=== PATIENT | female | born 1945 | race Caucasian/White ===

== ENCOUNTER → 2018-08-26 12:02 | Outpatient (CLI) | payer MEDICARE, SELFPAY | PROVIDERS: Visit Provider Specialist | DX: R30.0 Dysuria (principal) | CPT/HCPCS: 87077; 87086; 87186 ==

== ENCOUNTER → 2018-08-26 12:24 | Outpatient (CLI) | payer MEDICARE, SELFPAY ==
[2018-08-26 13:58] LABS: Add Manual Diff / Slide Review NO; Basophils Percent Auto 0.4 % (0-2); Eosinophils Percent Auto 3.3 % (2-4); Hematocrit 38.5 % (36-46); Hemoglobin 12.7 g/dL (12.0-16.0); Lymphocytes Percent Auto 16.3 % (25-40); Mean Corpuscular HGB Conc 32.9 % (30-36); Mean Corpuscular Hemoglobin 30.4 PG (26-34); Mean Corpuscular Volume 92.4 fL (80-100); Monocytes Percent Auto 9.4 % (3-14); Neutrophils Absolute Auto 7100 /uL (3000-5900); Neutrophils Percent Auto 70.6 % (50-75); Platelet Count 239 X10^3/uL (150-400); Red Blood Cell Count 4.17 X10^6/uL (4.0-5.2); Red Cell Distribution Width 14.3 % (11.6-14.8)
[2018-08-26 15:09] LABS: Alanine Aminotransferase 26 IU/L (9-52); Albumin 4.5 g/dL (3.5-5.0); Albumin Globulin Ratio 1.2 (1.0-2.8); Alkaline Phosphatase 79 U/L (38-126); Aspartate Aminotransferase 26 IU/L (14-36); BUN Creatinine Ratio 37.5 (6-22); Bilirubin Total 0.4 mg/dL (0.2-1.3); Blood Urea Nitrogen 30 mg/dL (7-17); Calcium 9.2 mg/dL (8.4-10.2); Carbon Dioxide 27 mmol/L (22-32); Chloride 103 mmol/L (98-107); Estimated Glomerular Filt Rate > 60.0 mL/min (>60); Globulin 3.7 g/dL (1.7-4.1); Glucose 81 mg/dL (80-110); HEMOLYSIS < 15 (0-50); Potassium 4.4 mmol/L (3.4-5.1); Sodium 144 mmol/L (137-145); Total Protein 8.2 g/dL (6.3-8.2)
== END ==
PROVIDERS: PCP Internal Medicine; Visit Provider Specialist
DX: Z01.818 Encounter for other preprocedural examination (principal); R30.0 Dysuria
CPT/HCPCS: 36415; 80053; 85025; 87077; 87086; 87186

== ENCOUNTER 2018-09-02 08:15 | Day surgery (SDC) | payer MEDICARE, SELFPAY ==
[2018-08-29 07:46] VITALS: BMI 28.3
[2018-09-02] VITALS (7 sets, daily range): BP systolic 145–176; BP diastolic 57–73; PULSE 62–74; RESP 13–18; TEMP 36.2–36.9; O2SAT 95–100; BMI 28.3
[2018-09-02] MEDS: LACTATED RINGERS 1,000 ML 100 ML IV (09:34)
--- NOTE | 2018-09-02 09:46 | SUR.OPER ---
Lithotomy on padded OR bed, head on pillow, arms secured on padded arm boards at <90 degrees abduction. Legs secured in padded yellow fins stirrups.
--- NOTE | 2018-09-02 10:01 | PM.PREOP ---
Pre-operative Note Interval Note Pre-op Check: Yes History & Physical Reviewed by Physician and Yes Exam Performed Changes: No
[2018-09-02] MEDS: CLINDAMYCIN 900 MG/50 ML PIGGYBACK 50 MG IV (10:08)
[2018-09-02] MEDS: BUPIVACAINE 0.5% W/ EPI (PF) VIAL 30 ML INJ (10:24)
--- NOTE | 2018-09-02 11:15 | PM.OP.1 ---
Operative Date/Time/Diagnoses Date of procedure: 09/02/18 Time of procedure: 11:15 Pre-op diagnosis: Symptomatic vaginal prolapse Post-op diagnosis: same Procedure & Clinicians Procedure: Colpocleisis Same procedure as scheduled: Yes Indications: Symptomatic vaginal wall prolapse Surgeon: Melita Burgess Click Yes if Unassisted: Yes Anesthesia Type: General Operative Notes Findings: Status post hysterectomy with cystocele and enterocele Closure Type: primary Specimen(s): none sent Estimated Blood Loss (mL): 20 Blood products transfused: none Procedure in detail: Patient was brought to the operating room where she was in a supine position in [facility] and underwent a light general anesthetic. She was prepped and draped in the usual sterile fashion. Her bladder was drained. Antibiotics were in prior to beginning of the case. Warming was in place. Pulsatile stockings were in place. Area on anterior and posterior wall of the prolapse were marked with a marking pen and injected with a dilute solution of half percent Marcaine with epinephrine. The skin was incised with a scalpel and undermined with and removed removed with Metzenbaum scissors. 2-0 Vicryl suture was used in an interrupted fashion to close anterior to posterior on the sides creating a tunnel to the vaginal cuff. The cystocele was reduced with a pursestring suture of 2 0 Vicryl suture. 0 Vicryl suture was used to plicate under the urethral bladder junction. A 0 Vicryl suture was used to plicate the tissue over the enterocele. The vaginal incision was closed from anterior to posterior. Counts of instruments and sponges were correct. Patient went to recovery room in good condition. Complications: none Condition: stable Disposition: same day surgery Plan for aftercare: Home when awake and stable and able to urinate
== END 2018-09-02 12:35 | disposition home or self-care (01) ==
PROVIDERS: PCP Internal Medicine; Visit Provider Specialist
PROC: (CPT 57120; principal; 2018-09-02 09:45)
DX: N99.3 Prolapse of vaginal vault after hysterectomy (principal); N81.11 Cystocele, midline; J45.909 Unspecified asthma, uncomplicated; I10 Essential (primary) hypertension; M06.9 Rheumatoid arthritis, unspecified
CPT/HCPCS: 57120; J1100; J2405; J2704; J3010

== ENCOUNTER → 2019-02-03 11:40 | Outpatient (CLI) | payer MEDICARE, SELFPAY ==
--- NOTE | 2019-02-03 | DI.MRI.S_ITS ---
PROCEDURE: MR KNEE RT WO CON INDICATIONS: Pain in right knee TECHNIQUE: Noncontrast sagittal PD fast spin echo and T2 fast spin echo with fat saturation, sagittal 3-D FLASH with fat saturation; coronal T1 spin echo and PD fast spin echo with fat saturation, and axial PD fast spin echo with fat saturation through the knee. COMPARISON: [facility], MR, MR KNEE RIGHT WITHOUT CONTRAST, 09/01/2018, 15:35. FINDINGS: Image quality: Diagnostic. Bones and joint: There is no acute fracture or dislocation. No suspicious osseous lesions are evident. There is a small knee joint effusion with an associated Armas's cyst. Irregularity of the hyaline articular cartilage is noted within the lateral and patellofemoral compartments with small to moderate-sized full-thickness cartilaginous defects present. Degenerative/reactive marrow changes are evident involving the lateral patellar facet and the lateral tibial plateau. There also are reactive marrow changes evident along the periphery of the lateral tibial plateau. Developing marginal osteophytes within these 2 compartments are present. Cruciate ligaments: The anterior and posterior cruciate ligaments are intact. Menisci: There is an oblique tear identified that extends into the inferior articular surface involving the body of the lateral meniscus. Degenerative signal of the lateral meniscus is present. There is degenerative signal of the medial meniscus, which is positioned along the periphery of the body of the meniscus without a discrete medial meniscal tear evident. Medial structures: The medial collateral ligament is intact. Edema about the medial collateral ligament is noted. There is slight thickening involving the proximal aspect of this ligament. There is thickening and mild increased signal identified involving the distal aspect of the semimembranosus tendon at its insertion with low-grade partial-thickness tearing. It may be fluid contained within its corresponding bursa. The imaged portions of the pes anserinus tendons are unremarkable. A small amount of fluid is contained within the pes anserinus bursa. Lateral structures: The popliteal tendon is intact. The lateral collateral ligament proper (fibular collateral ligament) and the proximal tibiofibular ligaments are intact. The distal aspect of the biceps femoris tendon and the iliotibial band are intact. Anterior structures: The quadriceps and patellar tendons are intact. There is no significant edema in the infrapatellar fat pad. Prepatellar edema is noted. IMPRESSION: 1. Moderate patellofemoral and lateral tibiofemoral compartment chondromalacia. 2. Small knee joint effusion with an associated probable leaking Armas's cyst. 3. Nondisplaced oblique tear involving the inferior articular surface of the lateral meniscal body. 4. Grade 2 signal of the medial meniscus without a discrete tear. 5. Medial collateral ligament sprain with possible superimposed scarring. 6. Low-grade partial-thickness tearing and tendinopathy of the semimembranosus tendon insertion with fluid contained within its corresponding bursa. There is also fluid within the pes anserinus bursa. 7. Prepatellar bursal thickening/edema. Dictated by: Prabhjot Padgett M.D. on 02/03/2019 at 11:47 Approved by: Prabhjot Padgett M.D. on 02/03/2019 at 12:06
== END ==
PROVIDERS: PCP Internal Medicine; Visit Provider Orthopaedic Surgery
DX: M25.561 Pain in right knee (principal); S83.281A Other tear of lateral meniscus, current injury, right knee, initial encounter; S83.411A Sprain of medial collateral ligament of right knee, initial encounter; M22.41 Chondromalacia patellae, right knee; M25.461 Effusion, right knee
CPT/HCPCS: 73721

== ENCOUNTER → 2019-02-10 15:42 | Outpatient (CLI) | payer MEDICARE, SELFPAY ==
[2019-02-10 16:48] LABS: RBC Urine None Seen (0-5/HPF)
[2019-02-10 17:21] LABS: Hematocrit 39.7 % (36-46); Hemoglobin 13.3 g/dL (12.0-16.0); Mean Corpuscular HGB Conc 33.4 % (30-36); Mean Corpuscular Hemoglobin 30.4 PG (26-34); Mean Corpuscular Volume 91.2 fL (80-100); Platelet Count 232 X10^3/uL (150-400); Red Blood Cell Count 4.36 X10^6/uL (4.0-5.2); Red Cell Distribution Width 14.5 % (11.6-14.8); White Blood Cell Count 9.6 X10^3/uL (4.5-11.0)
[2019-02-10 17:33] LABS: Alanine Aminotransferase 22 IU/L (9-52); Albumin 4.6 g/dL (3.5-5.0); Albumin Globulin Ratio 1.2 (1.0-2.8); Alkaline Phosphatase 78 U/L (38-126); Aspartate Aminotransferase 29 IU/L (14-36); BUN Creatinine Ratio 28.8 (6-22); Bilirubin Total 0.6 mg/dL (0.2-1.3); Blood Urea Nitrogen 23 mg/dL (7-17); Calcium 9.2 mg/dL (8.4-10.2); Carbon Dioxide 29 mmol/L (22-32); Chloride 102 mmol/L (98-107); Estimated Glomerular Filt Rate > 60.0 mL/min (>60); Globulin 3.9 g/dL (1.7-4.1); Glucose 88 mg/dL (80-110); HEMOLYSIS < 15 (0-50); Potassium 4.3 mmol/L (3.4-5.1); Sodium 141 mmol/L (137-145); Total Protein 8.5 g/dL (6.3-8.2)
[2019-02-10 17:39] LABS: Appearance Urine UA CLEAR; Bilirubin Urine UA NEGATIVE (NEGATIVE); Color Urine UA YELLOW; Glucose Urine UA NEGATIVE (Negative); Ketones Urine UA NEGATIVE (NEGATIVE); Leukocyte Esterase Urine UA TRACE (NEGATIVE); Nitrite Urine UA NEGATIVE (Negative); Occult Blood Urine UA NEGATIVE (Negative); Protein Urine UA NEGATIVE (Negative); Urobilinogen Urine UA 0.2 E.U./dL (0.2)
[2019-02-10 17:42] LABS: Hemoglobin A1C% w Est Avg Glu 5.1 % (4.0-6.0)
[2019-02-10 18:15] LABS: Amorphous Sediment Urine 1+; Bacteria Urine Occasional (0-1); Culture Indicated Urine Specimen Cultured; Squamous Epithelial Cell Urine 0-1 /HPF (0-5/HPF); WBC Urine 5-10/HPF (0-5/HPF)
== END ==
PROVIDERS: PCP Internal Medicine; Visit Provider Orthopaedic Surgery
DX: Z01.818 Encounter for other preprocedural examination (principal); N39.0 Urinary tract infection, site not specified; R73.9 Hyperglycemia, unspecified
CPT/HCPCS: 36415; 80053; 81001; 83036; 85027; 87077; 87086; 87186; 93005

== ENCOUNTER → 2019-02-10 16:32 | Outpatient (CLI) | payer MEDICARE, SELFPAY | PROVIDERS: PCP Internal Medicine; Visit Provider Orthopaedic Surgery | DX: N39.0 Urinary tract infection, site not specified (principal); R73.9 Hyperglycemia, unspecified; Z01.818 Encounter for other preprocedural examination | CPT/HCPCS: 93010 ==

== ENCOUNTER → 2019-02-16 09:02 | Outpatient (CLI) | payer MEDICARE, SELFPAY | PROVIDERS: PCP Internal Medicine; Visit Provider Specialist | DX: N39.0 Urinary tract infection, site not specified (principal); R33.9 Retention of urine, unspecified | CPT/HCPCS: 87086 ==

== ENCOUNTER 2019-03-15 06:01 | Day surgery (SDC) | payer MEDICARE, SELFPAY ==
[2019-03-01 13:39] VITALS: BMI 27.8
[2019-03-15] VITALS (12 sets, daily range): BP systolic 118–168; BP diastolic 48–74; PULSE 52–73; RESP 10–18; TEMP 35.8–36.2; O2SAT 93–100; BMI 27.8
--- NOTE | 2019-03-15 06:50 | DI.RAD.S_ITS ---
PROCEDURE: XR KNEE RT 1TO2V INDICATIONS: RIGHT TOTAL KNEE TECHNIQUE: 2 view(s) of the knee acquired. COMPARISON: None. FINDINGS: Bones: Patient is status post knee joint arthroplasty. Hardware components are in expected positions. Visualized bony structures are intact. Soft tissues: Overlying postoperative changes are noted. IMPRESSION: Expected postoperative appearance Dictated by: Andrea Butler M.D. on 03/15/2019 at 11:04 Approved by: Andrea Butler M.D. on 03/15/2019 at 11:04
[2019-03-15] MEDS: ACETAMINOPHEN 325 MG TABLET 975 MG PO ×3 (06:52→22:26)
[2019-03-15] MEDS: PREGABALIN 75 MG CAPSULE PO (06:52)
[2019-03-15] MEDS: LACTATED RINGERS 1,000 ML 42 ML IV (07:00)
[2019-03-15] MEDS: VANCOMYCIN 1,000 MG/200 ML PIGGYBACK 200 MG IV (07:01)
--- NOTE | 2019-03-15 07:42 | PM.PREOP ---
Pre-operative Note Interval Note History & Physical reviewed/Exam performed by Physician: Yes Changes to H&P: No
--- NOTE | 2019-03-15 07:49 | PM.OP.1 ---
Operative Date/Time/Diagnoses Date of procedure: 03/15/19 Time of procedure: 07:59 Pre-op diagnosis: Right knee osteoarthritis Post-op diagnosis: same Procedure & Clinicians Procedure: Right total knee arthroplasty Same procedure as scheduled: Yes Indications: The patient has had progressively worsening right knee pain with radiographic changes consistent with arthritis. Non-operative management has failed and the patient has requested total knee replacement. The risks, benefits and alternatives to surgery were discussed with the patient prior to proceeding. Risks discussed included, but were not limited to, failure to relieve pain, stiffness, infection, nerve damage, deep venous thrombosis, pulmonary embolism, stroke, coma, heart attack, permanent paralysis and , as well as the potential need for eventual revision of the prosthetic. Surgeon: Maris Manzanares Building Services Supervisor: David Vidal Click Yes if Unassisted: Yes Anesthesia Type: General and Spinal Operative Notes Findings: Severe right knee osteoarthritis Closure Type: primary Specimen(s): none sent Prosthetic devices, grafts, tissues, transplants, or devices: Manzanares and Nephew Jeanethney BCS 2 size 4 femur, size 3 tibia, +10 poly, 32 by 7-1/2 mm patella Applied: drain(s) Estimated Blood Loss (mL): 250 Blood products transfused: none Tourniquet time (min): 76 Procedure in detail: The patient was seen in the pre-operative area, where the patient identified the right knee as the operative site and this was marked with my initials. The patient received pre-operative antibiotics, and was taken to the operating room and placed on the operative table in the supine position. After satisfactory anesthesia, a time buyer out was performed. The right leg was encircled with a tourniquet about the proximal thigh, and the leg was prepared from the toes to the tourniquet with ChloroPrep in the usual fashion and draped through sterile drapes. The leg was elevated and exsanguinated with Eschmark bandage and the tourniquet inflated to [250] mmHg pressure. The knee was approached through an approximately 18 cm incision centered over the patella and carried into the knee through a medial parapatellar arthrotomy. A portion of the medial and lateral meniscus was resected. Soft tissue was carefully mobilized around the patella the patella was measured with a caliper. Bone was resected from the patella and the patellar height was reconstituted with up an appropriate sized patellar component. A cover was then placed on the patella. A small amount of additional medial and lateral meniscus was resected. The visionare guide fit well to the distal femur. It looked like an appropriate distal femoral cut and the cut was made without difficulty. The rotation was assessed and the appropriate size femoral guide was placed on the distal femur and finishing cuts were made. There was no evidence of notching. The anterior, posterior and chamfer cuts were then made. The posterior osteophytes and soft tissues were then removed. The posterior capsule was injected with part of a mixture of 60 ml 0.25% Marcaine mixed with 20 ml Exparel for post operative pain control. The remainder of this mixture was injected into the capsule and subcutaneous tissues during cement curing. The tibia was prepared and the visionaire guide fit well to the distal tibia. The rotation was assessed. The patient was placed in extension residual medial and lateral meniscus as well as any residual bone was carefully resected. [No] additional tibia was resected. Hemostasis was achieved especially posteriorly. Additional local was injected into the posterior capsule. The extension gap was assessed and additional releases for gap balancing were performed as necessary. The femoral component was trial was placed and the notch was finished. Trial tibial and femoral components were then placed and the knee placed through a range of motion. Range of motion was [0-130], with good stability throughout the range. The trials were then removed, and the tibia was finished. The bone was prepared with pulsatile lavage, and dried with a sponge. Cement was applied and the final prosthetics placed. Excess cement was removed during and after cement curing. A brief Betadine soak was performed. A 10 poly was selected for midflexion stability. After confirming there was no extruded cement posteriorly, the final tibial insert was placed. The knee was copiously irrigated and the tourniquet deflated. Hemostasis was obtained with the Bovie. A drain was placed and brought out superolaterally. The capsule was closed with interrupted Vicryl suture. The subcutaneous layer was closed with barbed sutures, and the skin with a running 3-0 V-Lock suture and Surgical glue. An Aquacel Ag dressing was applied and the patient was taken to recovery having tolerated the procedure well. Complications: none Condition: stable Disposition: Acute Care Plan for aftercare: The patient will be maintained on a standard total knee replacement protocol with weight bearing as tolerated. The patient will receive aspirin and sequential compression devices for DVT prophylaxis. The patient will be discharged home when safe for the home environment.
[2019-03-15] MEDS: CEFAZOLIN 2 GM/100 ML FROZ.PIGGY IV ×3 (08:00→23:39)
[2019-03-15] MEDS: TRANEXAMIC ACID 1,000 MG VIAL 1000 MG INJ ×2 (08:10→09:50)
--- NOTE | 2019-03-15 08:31 | SUR.OPER ---
Supine on padded OR bed. Pillow under head, arms secured on padded armboards <90 degree abduction. Safety belt across torso. Non-operative leg secured with tape over blanket over lower leg. Operative leg secured in DeMayo/Terence positioner. Foam padded brace at thigh of operative leg.
[2019-03-15] MEDS: BUPIVACAINE LIPOSOME 266 MG/20 ML VIAL INJ (08:35)
[2019-03-15] MEDS: BUPIVACAINE 0.25% W/ EPI 30 ML VIAL 60 ML INJ (08:35)
[2019-03-15] MEDS: POVIDONE-IODINE 15 ML, SODIUM CHLORIDE 0.9% 250 ML TOP (08:36)
[2019-03-15] MEDS: LACTATED RINGERS 1,000 ML 125 ML IV (11:00)
--- NOTE | 2019-03-15 12:05 | CM.DANOTE ---
DCP: Case received, EMR reviewed and met with patient. Introduced self and role. Was able to obtain history from patient, also at bedside. DCP template assessment completed with information currently available. Patient is a 74 year old female who admitted early this morning to the care of the surgical/orthopedic team. PCP: Dr. Augustin. Payer: confirmed: Medicare/[employer]. Patient came to hospital for surgical procedure. She had R. total knee arthroplasty. Patient has history of right knee osteoarthritis. Met with patient in her room, awake. , Rocael, at bedside. Patient stated, she has had history of knee problems, and has had cortisone in the past. She mentioned that she has been going to outpatient physical therapy in [facility], and expects to go back there. P: DCP to continue to follow. Will see how she does with physical therapy. Isabel Isaacs RN/Edi Developer
--- NOTE | 2019-03-15 14:11 | PC.NURSE ---
Addendum entered by Keke White R.N. 03/15/19 15:40: Pt had a 200cc emesis around 1500 after taking 975mg of tylenol. Pt was then given zofran iv and she is doing better. Denies nausea at this time. Original Note: Pt admitted to the floor at 1040. She has a aquacel dressing with acewrap to r.knee. She denies pain and just refused 1500 tylenol. States that she is tired more than anything. She has feeling down to her toes, cms wnl and ppx2. is at bedside and helpful with care, he is a retired MD. Just took a few sips of the ensure surgery drink. Resting comfortably on back at this time.
--- NOTE | 2019-03-15 14:49 | PT.IIE ---
Current Diagnoses Unilateral primary osteoarthritis, right knee (03/15/19) Surgery Performed Operation Date: 03/15/19 07:45 Actual Procedures p Total Knee Arthroplasty(Right) - Maris Manzanares MD Surgical History (Last Updated 03/01/19 @ 14:22 by Cintia Reyes, RN) History of bladder suspension procedure (Acute) Hx of parathyroidectomy (Acute) Hx of tonsillectomy (Acute) Anesthesia (Resolved) History of carpal tunnel surgery (Resolved) History of hysterectomy (Resolved) Parathyroid adenoma (Resolved) Status post surgery (Resolved ~09/02/18) Medical History (Last Updated 03/01/19 @ 14:22 by Cintia Reyes RN) HLD (hyperlipidemia) (Acute) History of cystocele (Acute ~08/2018) Macular degeneration of both eyes (Acute) Pneumonia (Acute) Reflux esophagitis (Acute) Asthma (Chronic) Cataracts, bilateral (Chronic) Fibroids (Chronic) Foot pain (Chronic) Hemorrhoid (Chronic) Hypertension (Chronic) Osteopenia (Chronic) Osteoporosis (Chronic) Rheumatoid arthritis (Chronic) Rosacea (Chronic) Seasonal allergies (Chronic) Vision disorder (Chronic) Abnormal Pap smear of cervix (Resolved) Carpal tunnel syndrome (Resolved) Chicken pox (Resolved) Mumps (Resolved) Rubella (Resolved) Physical Therapy Inpatient Evaluation/Re-Eval M1 PT/OT-IP Prior Functional Status Start: 03/15/19 16:11 Freq: NEEDED Status: Active Protocol: Document 03/15/19 14:49 AB (Rec: 03/15/19 16:25 AB [id number]) Medical Review Prior Functional Status Medical History Reviewed Yes Communication able to make needs known Mobility and Gait pt stated that she is independent with all mobilities and ambulation without AD Social History Household Members spouse Living Arrangements House Number of Floors (Floors) Two Floors Number of Stairs To Enter/Railing? has 2 steps to enter with R rail ascending Home Environment Standard Height Toilet Walk in Shower Built-In Shower Seat Home Equipment Front Wheel Walker Straight Cane Grab Bars In Shower Employment Status Retired Additional Social History Comment has an adjustable bed pt also has walking sticks M2 PT-IP Current Condition Start: 03/15/19 16:11 Freq: NEEDED Status: Active Protocol: Document 03/15/19 14:49 AB (Rec: 03/15/19 16:25 AB [id number]) Physical Therapy Current Condition Current Condition Evaluation Date 03/15/19 Treatment Diagnosis s/p R TKA; difficulty in walking Onset Date 03/15/19 Weight Bearing Status Weight Bearing Status Weight Bear as Tolerated M3 PT-IP Subjective Start: 03/15/19 16:11 Freq: NEEDED Status: Active Protocol: Document 03/15/19 14:49 AB (Rec: 03/15/19 16:25 AB [id number]) Subjective Physical Therapy Visit Type Type Initial Evaluation Visit Start Time 14:49 Visit Stop Time 16:05 Total Visit Minutes 47 Notes pt seen for split visits Number of YAM CURER Visits 0 Physical Therapy Visit Comments Patient Comments pt agreeable to do PT Therapy Pain Assessment Pain When Pain Assessed At Rest Pain Present Pain Present Pain Reported Location Right Knee Intensity 6 Scale Used Numeric (1 - 10) Pain Management Techniques Apply Cold Re-positioning Timing of Activity with Medications M4 PT-IP Mobility and Gait Start: 03/15/19 16:11 Freq: NEEDED Status: Active Protocol: Document 03/15/19 14:49 AB (Rec: 03/15/19 16:25 AB [id number]) PT-Bed Mobility Assessment Supine to Sit Supine to Sit Standby Assistance Head of Bed Elevated Sit to Supine Sit to Supine Standby Assistance Scooting Scooting to Edge of Bed Standby Assistance PT-Transfer Assessment Sit to and From Stand Sit to and from Stand Minimal Assistance 1 Person Assistance Use of Upper Extremities Equipment Transfer Assistive Device Gait Belt Front Wheeled Walker Orthotic/Prosthetic Devices or Brace: No Transfers Transfer Destination Bedside Commode Transfer Technique Stand Step Pivot Transfer Ability Level of Assist Minimal Assistance 1 Person Assistance Use of Upper Extremities Comments Mobility Comments check on pt and inquired about PLOF and home set up. attempted to move but pt c/o nausea still supine in bed. ( +) emesis. informed nurse. nurse has to give pt nausea medication first and PT to check back again. checked on pt after ~ 30 min and pt willing to do PT. BP supine: 149/60 pt sat on EOB SBA. c/o lightheadedness. BP: 156/72. attempted to walk to the toilet but after completing sit to stand min A, pt stated that she is already going. NAC in room and positioned bedside commode next to pt and pt completed stand step pivot min A using FWW. pt completed sit to stand from bedside commode min A. pt was able to maintain standing using FWW for support CGA while NAC assisted with hygiene care and brief management. pt then took ~ 3 steps towards HOB using FWW min A and has to sit back down due to c/o nausea. pt stated that she wants to do more PT but she cannot. Pt with (+) emesis. informed nurse. pt completed sit to supine SBA. positioned pt in bed. BP in supine: 138/69. ice pack provided call light and table placed within reach. Gait Assessment Gait Gait Assistance Required: Minimum Assistance Distance (Feet) 2 Able to Maintain Weight Bearing Status Yes During Gait Assistive Devices Assistive Device Gait Belt Front Wheeled Walker Orthotic/Prosthetic Devices or Brace: No Gait Deviations General Gait Pattern Antalgic Decreased Stride Length Decreased Feet Clearance Factors Limiting Gait Function Factors Limiting Gait Function Decreased Activity Tolerance Decreased Strength Limited Range of Motion Pain Poor Balance Comments Gait Comments pt unable to ambulate much due to c/o nausea. PT-Balance Assessment Sitting Balance and Reactions Static Sitting Balance Ability Good Dynamic Sitting Balance Ability Good Standing Balance and Reactions Static Standing Balance Ability Fair Dynamic Standing Balance Ability Fair Device Used FWW M5 PT-IP Objective Assessments Start: 03/15/19 16:11 Freq: NEEDED Status: Active Protocol: Document 03/15/19 14:49 AB (Rec: 03/15/19 16:25 AB [id number]) Orientation Orientation/Cognition Level of Alertness Alert Orientation Name Age Place Situation Language Function Ability No Deficits Noted Gross Range of Motion Lower Extremity ROM Assessment Right Impaired Impairments R knee flexion: ~90 deg R knee extension: 10 deg lacking in neutral Strength Lower Extremity Strength Assessment Right Impaired Hip 4-/5 Knee 3+/5 Coordination Assessment Gross Coordination Gross Coordination WNL Sensation Assessment Sensation Gross Sensation WNL Muscle Tone Muscle Tone WNL Yes M6 PT-IP Treatment Start: 03/15/19 16:11 Freq: NEEDED Status: Active Protocol: Document 03/15/19 14:49 AB (Rec: 03/15/19 16:25 AB [id number]) Physical Therapy Treatment Exercises Exercises Quad Sets Heel Slides Education Education Provided Precautions Weight Bearing Status Post-Op Packet Safety M7 PT-IP Assessment and Plan Start: 03/15/19 16:11 Freq: NEEDED Status: Active Protocol: Document 03/15/19 14:49 AB (Rec: 03/15/19 16:25 AB [id number]) PT Summary Assessment and Plan Potential Rehabilitation Potential Good Status of Condition at Evaluation Evolving Summary Impairments Pain ROM Strength Balance Coordination Sensation Bed Mobility Transfers Gait Activity Tolerance Assessment Summary pt unable to tolerate much activity due to c/o nausea/ lightheadedness. will continue to assess. pt plans to go home with spouse to assist her. caregiver training will be completed when appropriate and will also conduct caregiver training prior to d/c. pt stated that she is set up for outpt PT. Goals Bed Mobility Goal Independent Transfer Goal Independent Front Wheeled Walker Gait Goal Independent Front Wheel Walker Gait Distance 200 Other Goals up/down 2 steps with R rail ascending Days to Meet Goals 3 Frequency of Treatment Frequency Of Treatment Twice a Day Treatment Plan Physical Therapy Treatment Plan Bed Mobility Training Transfer Training Gait Training Therapeutic Exercise Balance Retraining Post Op Education Discharge Planning Hot or Cold Pack Neuromuscular Re-ed Coordination Retraining Manual Therapy Recommendations To Nursing Amount of Assist Needed 1 Person Assist Discharge Recommendations PT Discharge Recommendations Home with Assistance Outpatient PT
[2019-03-15] MEDS: ONDANSETRON 4 MG/2 ML INJ IV (15:06)
[2019-03-16 00:15] VITALS: BP 138/40; PULSE 62; RESP 16; TEMP 36.5; O2SAT 94
[2019-03-16 04:00] VITALS: BP 140/54; PULSE 78; RESP 16; TEMP 36.8; O2SAT 94
[2019-03-16] MEDS: IBUPROFEN 600 MG TABLET PO ×2 (04:05→12:35)
[2019-03-16 05:56] LABS: Hematocrit 34.3 % (36-46); Hemoglobin 11.4 g/dL (12.0-16.0)
[2019-03-16] MEDS: PANTOPRAZOLE 40 MG TABLET PO (06:01)
--- NOTE | 2019-03-16 08:01 | PM.DS.1 ---
History of Present Illness Date Patient Seen: 03/16/19 Time Patient Seen: 08:02 Chief complaint: [id number] Narrative: Please see HPI recorded in the chart. Discharge Providers Date of admission: 03/15/19 06:01 Discharge Date: 03/16/19 Primary care physician: Giancarlo Augustin MD Consults: 03/15/19 06:50 Consult to Anesthesiology Routine Comment: Consulting Provider: Anesthesiologist Reason for consultation: Regional block for post operative pain control 03/15/19 11:06 Consult to Discharge Planning Routine Comment: Consult to Physical Therapy Evaluate & Treat Comment: Physician Instructions: postop TKA protocol Consult to Respiratory Therapy Evaluate & Treat Comment: Physician Instructions: Evaluate and treat Discharge provider: eLonila Reeder PA-C Summary Discharge Diagnosis: s/p right total knee arthroplasty Hospital Course: The patient has had progressively worsening right knee pain with radiographic changes consistent with arthritis. Non-operative management has failed and the patient has requested total knee replacement. The risks, benefits and alternatives to surgery were discussed with the patient prior to proceeding. Risks discussed included, but were not limited to, failure to relieve pain, stiffness, infection, nerve damage, deep venous thrombosis, pulmonary embolism, stroke, coma, heart attack, permanent paralysis and , as well as the potential need for eventual revision of the prosthetic. She was taken to the operating room 03/16/19 for right total knee arthroplasty with Dr. Manzanares, she tolerated the procedure well with no complications. She was admitted to the hospital and experienced some nausea with vomiting POD#0 that resolved with Zofran. She was unable to do much PT that day due to nausea but did mobilize some about the room. POD#1 nausea has resolved tolerating a diet, pain is well controlled. She has supply of post operative medications at home. Anticipate discharge to home today pending clearance by physical therapy. Status at Discharge Cognitive/behavioral status at discharge: oriented Functional status at discharge: uses cane/walker Overall status at discharge: patient is progressing back to baseline Exam Vital Signs (past 8 hours): - 03/16/19 00:15 03/16/19 04:00 Temperature 97.7 F 98.2 F Pulse Rate 62 78 Respiratory Rate 16 16 Blood Pressure 138/40 L 140/54 L Pulse Oximetry 94 94 Oxygen Delivery Method Room Air Oxygen Flow Rate 0 Narrative Exam Narrative: Pleasant 74 year old female resting comfortably in bed. Alert and oriented in no acute distress. Dressing in place over right knee is clean, dry, and intact. Able to actively dorsiflex/plantar flex the ankle. Intact sensation to light touch in distal extremity. Palpable pedal pulse. Calves soft, nontender bilaterally. Objective Labs Result Diagrams: 03/16/19 05:27 Labs: Laboratory Results - last 24 hr 03/16/19 05:27 Hgb 11.4 L Hct 34.3 L Discharge Plan Discharge Plan Patient Disposition: Home Discharge comment: Home today if cleared by PT Discharge Med Rec/Prescriptions Prescriptions: New aspirin 81 mg Tablet,Delayed Release (Dr/Ec) 81 mg PO BID Qty: 60 RF: 0 oxycodone-acetaminophen 5-325 mg Tablet 1 tab PO Q4HR PRN (Reason: Pain, Severe (7-10)) Qty: 1 RF: 0 docusate sodium [DOK] 100 mg Capsule 100 mg PO BID Qty: 60 RF: 0 Continued folic acid 20 mg capsule 20 mg PO DAILY RF: 0 lovastatin 10 mg tablet 10 mg PO BEDTIME RF: 0 infliximab [Remicade] 100 mg recon soln 100 mg IV DIRECTED RF: 0 lansoprazole 30 mg capsule,delayed release(DR/EC) 30 mg PO DAILY RF: 0 leucovorin calcium 5 mg tablet 5 mg PO QWEEK RF: 0 losartan 100 mg tablet 100 mg PO DAILY RF: 0 multivitamin capsule 1 cap PO DAILY RF: 0 acetaminophen [Tylenol] 325 mg capsule 325 mg PO Q6H PRN (Reason: pain) RF: 0 cholecalciferol (vitamin D3) 2,000 unit capsule 2,000 unit PO DAILY RF: 0 vitamins A,C,T-ddsx-uqiguj [PreserVision AREDS] 7,160-113-100 [id number] tablet 1 tab PO BID RF: 0 bethanechol chloride 5 mg tablet 5 mg PO BID Qty: 60 RF: 10 nitrofurantoin macrocrystal [Macrodantin] 100 mg capsule 100 mg PO BEDTIME Qty: 30 RF: 10 methotrexate sodium 2.5 mg Tablet 7.5 mg PO QWEEK RF: 0 fexofenadine 30 mg Tablet,Disintegrating 30 mg PO DAILY RF: 0 Follow up/Referrals: Maris Manzanares MD [Physician] - Provider Discharge Instructions Diet: Diet as Tolerated Activity: Weight bear as tolerated. Recommend walker for support. Continue ankle pumps. Cold/Heat Therapy: Ice packs as needed. Skin/Wound/Dressing Care Report to your healthcare provider any signs of infection, such as:: chills, fever, night sweats, unusual drainage and unusual redness Dressing: May remove SHAZIA wrap tomorrow. Leave Aquacel dressing in place, it will be removed at postoperative visit. Please let the office know if dressing becomes saturated. Visit Report/Discharge Packet Instructions: DI for Knee Replacement Discharge Data Primary Care Provider: Giancarlo Augustin Attending Provider: Mairs Manzanares Admit Date/Time: 03/15/19 06:01 Quality VTE Deep Vein Thrombosis/Pulmonary Embolism Present on Admission: No
--- NOTE | 2019-03-16 08:06 | P.DS_ITS ---
History of Present Illness Date Patient Seen: 03/16/19 Time Patient Seen: 08:02 Chief complaint: [id number] Narrative: Please see HPI recorded in the chart. Discharge Providers Date of admission: 03/15/19 06:01 Discharge Date: 03/16/19 Primary care physician: Giancarlo Augustin MD Consults: 03/15/19 06:50 Consult to Anesthesiology Routine Comment: Consulting Provider: Anesthesiologist Reason for consultation: Regional block for post operative pain control 03/15/19 11:06 Consult to Discharge Planning Routine Comment: Consult to Physical Therapy Evaluate & Treat Comment: Physician Instructions: postop TKA protocol Consult to Respiratory Therapy Evaluate & Treat Comment: Physician Instructions: Evaluate and treat Discharge provider: Leonila Reeder PA-C Summary Discharge Diagnosis: s/p right total knee arthroplasty Hospital Course: The patient has had progressively worsening right knee pain with radiographic changes consistent with arthritis. Non-operative management has failed and the patient has requested total knee replacement. The risks, benefits and alternatives to surgery were discussed with the patient prior to proceeding. Risks discussed included, but were not limited to, failure to relieve pain, stiffness, infection, nerve damage, deep venous thrombosis, pulmonary embolism, stroke, coma, heart attack, permanent paralysis and , as well as the potential need for eventual revision of the prosthetic. She was taken to the operating room 03/16/19 for right total knee arthroplasty with Dr. Manzanares, she tolerated the procedure well with no complications. She was admitted to the hospital and experienced some nausea with vomiting POD#0 that resolved with Zofran. She was unable to do much PT that day due to nausea but did mobilize some about the room. POD#1 nausea has resolved tolerating a diet, pain is well controlled. She has supply of post operative medications at home. Anticipate discharge to home today pending clearance by physical therapy. Status at Discharge Cognitive/behavioral status at discharge: oriented Functional status at discharge: uses cane/walker Overall status at discharge: patient is progressing back to baseline Exam Vital Signs (past 8 hours): - 03/16/19 00:15 03/16/19 04:00 Temperature 97.7 F 98.2 F Pulse Rate 62 78 Respiratory Rate 16 16 Blood Pressure 138/40 L 140/54 L Pulse Oximetry 94 94 Oxygen Delivery Method Room Air Oxygen Flow Rate 0 Narrative Exam Narrative: Pleasant 74 year old female resting comfortably in bed. Alert and oriented in no acute distress. Dressing in place over right knee is clean, dry, and intact. Able to actively do rsiflex/plantar flex the ankle. Intact sensation to light touch in distal extremity. Palpable pedal pulse. Calves soft, nontender bilaterally. Objective Labs Result Diagrams: 03/16/19 05:27 Labs: Laboratory Results - last 24 hr 03/16/19 05:27 Hgb 11.4 L Hct 34.3 L Discharge Plan Discharge Plan Patient Disposition: Home Discharge comment: Home today if cleared by PT Discharge Med Rec/Prescriptions Prescriptions: New aspirin 81 mg Tablet,Delayed Release (Dr/Ec) 81 mg PO BID Qty: 60 RF: 0 oxycodone-acetaminophen 5-325 mg Tablet 1 tab PO Q4HR PRN (Reason: Pain, Severe (7-10)) Qty: 1 RF: 0 docusate sodium [DOK] 100 mg Capsule 100 mg PO BID Qty: 60 RF: 0 Continued folic acid 20 mg capsule 20 mg PO DAILY RF: 0 lovastatin 10 mg tablet 10 mg PO BEDTIME RF: 0 infliximab [Remicade] 100 mg recon soln 100 mg IV DIRECTED RF: 0 lansoprazole 30 mg capsule,delayed release(DR/EC) 30 mg PO DAILY RF: 0 leucovorin calcium 5 mg tablet 5 mg PO QWEEK RF: 0 losartan 100 mg tablet 100 mg PO DAILY RF: 0 multivitamin capsule 1 cap PO DAILY RF: 0 acetaminophen [Tylenol] 325 mg capsule 325 mg PO Q6H PRN (Reason: pain) RF: 0 cholecalciferol (vitamin D3) 2,000 unit capsule 2,000 unit PO DAILY RF: 0 vitamins A,C,M-sulc-hlvyxg [PreserVision AREDS] 7,160-113-100 iisi-is-mabt tablet 1 tab PO BID RF: 0 bethanechol chloride 5 mg tablet 5 mg PO BID Qty: 60 RF: 10 nitrofurantoin macrocrystal [Macrodantin] 100 mg capsule 100 mg PO BEDTIME Qty: 30 RF: 10 methotrexate sodium 2.5 mg Tablet 7.5 mg PO QWEEK RF: 0 fexofenadine 30 mg Tablet,Disintegrating 30 mg PO DAILY RF: 0 Follow up/Referrals: Maris Manzanares MD [Physician] - Provider Discharge Instructions Diet: Diet as Tolerated Activity: Weight bear as tolerated. Recommend walker for support. Continue ankle pumps. Cold/Heat Therapy: Ice packs as needed. Skin/Wound/Dressing Care Report to your healthcare provider any signs of infection, such as:: chills, fever, night sweats, unusual drainage and unusual redness Dressing: May remove SHAZIA wrap tomorrow. Leave Aquacel dressing in place, it will be removed at postoperative visit. Please let the office know if dressing becomes saturated. Visit Report/Discharge Packet Instructions: DI for Knee Replacement Discharge Data Primary Care Provider: Giancarlo Augustin Attending Provider: Maris Manzanares Admit Date/Time: 03/15/19 06:01 Quality VTE Deep Vein Thrombosis/Pulmonary Embolism Present on Admission: No
[2019-03-16 08:45] VITALS: BP 123/56; PULSE 78; RESP 16; TEMP 36.8; O2SAT 94
[2019-03-16] MEDS: ACETAMINOPHEN 325 MG TABLET 975 MG PO (09:58)
[2019-03-16] MEDS: LOSARTAN 50 MG TABLET 100 MG PO (09:59)
[2019-03-16] MEDS: VIT C/E/ZN/COPPR/LUTEIN/ZEAXAN CAPSULE 1 CAP PO (09:59)
[2019-03-16] MEDS: ASPIRIN EC 81 MG TABLET PO (09:59)
[2019-03-16] MEDS: MULTIVITAMIN 1 TABLET 1 TAB PO (10:00)
[2019-03-16] MEDS: DOCUSATE 100 MG CAPSULE PO (10:00)
[2019-03-16] MEDS: BETHANECHOL CHLORIDE 5 MG TABLET PO (10:00)
[2019-03-16] MEDS: LORATADINE 10 MG TABLET PO (10:00)
[2019-03-16] MEDS: CHOLECALCIFEROL (VITAMIN D3) 1,000 UNIT TABLET 2000 UNIT PO (10:00)
--- NOTE | 2019-03-16 10:30 | PT.IPTN ---
Current Diagnoses Unilateral primary osteoarthritis, right knee (03/15/19) Surgery Performed Operation Date: 03/15/19 07:45 Actual Procedures p Total Knee Arthroplasty(Right) - Maris Manzanares MD Physical Therapy Treatment Note M2 PT-IP Current Condition Start: 03/15/19 16:11 Freq: NEEDED Status: Active Protocol: Document 03/15/19 14:49 AB (Rec: 03/15/19 16:25 AB [id number]) Physical Therapy Current Condition Current Condition Evaluation Date 03/15/19 Treatment Diagnosis s/p R TKA; difficulty in walking Onset Date 03/15/19 Weight Bearing Status Weight Bearing Status Weight Bear as Tolerated M3 PT-IP Subjective Start: 03/15/19 16:11 Freq: NEEDED Status: Active Protocol: Document 03/16/19 11:13 GGD (Rec: 03/16/19 11:18 GGD [email or web address]) Subjective Physical Therapy Visit Type Type Treatment Note Visit Start Time 10:00 Visit Stop Time 10:30 Total Visit Minutes 30 Number of POST ACUTE CARE NURSE PRACTITIONER Visits 1 Physical Therapy Visit Comments Patient Comments Pt hopes to go home. Therapy Pain Assessment Pain When Pain Assessed At Rest Pain Present Pain Present Pain Reported Location Right Knee Intensity 5 Scale Used Numeric (1 - 10) M4 PT-IP Mobility and Gait Start: 03/15/19 16:11 Freq: NEEDED Status: Active Protocol: Document 03/16/19 11:13 GGD (Rec: 03/16/19 11:18 GGD [email or web address]) PT-Bed Mobility Assessment Supine to Sit Supine to Sit Standby Assistance Sit to Supine Sit to Supine Standby Assistance Scooting Scooting to Edge of Bed Standby Assistance PT-Transfer Assessment Sit to and From Stand Sit to and from Stand Contact Guard Assistance Use of Upper Extremities Equipment Transfer Assistive Device Gait Belt Front Wheeled Walker Orthotic/Prosthetic Devices or Brace: No Transfer Ability Level of Assist Contact Guard Assistance 1 Person Assistance Use of Upper Extremities Gait Assessment Gait Gait Assistance Required: Standby Assistance Distance (Feet) 60 Able to Maintain Weight Bearing Status Yes During Gait Assistive Devices Assistive Device Gait Belt Front Wheeled Walker Orthotic/Prosthetic Devices or Brace: No Gait Deviations General Gait Pattern Antalgic Decreased Stride Length Decreased Feet Clearance Factors Limiting Gait Function Factors Limiting Gait Function Decreased Activity Tolerance Decreased Strength Limited Range of Motion Pain Poor Balance Stair Climbing Assessment Evaluation Level of Assist On Stairs Contact Guard Assistance Devices Stair Climbing Assistive Devices Front Wheel Walker Technique/Endurance Stair Climbing Direction Ascend and Descend Stair Climbing Technique Step to Step Number of Steps Climbed 1 Stair Climbing Set # Repetitions (reps) 1 M5 PT-IP Objective Assessments Start: 03/15/19 16:11 Freq: NEEDED Status: Active Protocol: Document 03/15/19 14:49 AB (Rec: 03/15/19 16:25 AB [id number]) Orientation Orientation/Cognition Level of Alertness Alert Orientation Name Age Place Situation Language Function Ability No Deficits Noted Gross Range of Motion Lower Extremity ROM Assessment Right Impaired Impairments R knee flexion: ~90 deg R knee extension: 10 deg lacking in neutral Strength Lower Extremity Strength Assessment Right Impaired Hip 4-/5 Knee 3+/5 Coordination Assessment Gross Coordination Gross Coordination WNL Sensation Assessment Sensation Gross Sensation WNL Muscle Tone Muscle Tone WNL Yes M6 PT-IP Treatment Start: 03/15/19 16:11 Freq: NEEDED Status: Active Protocol: Document 03/16/19 11:13 GGD (Rec: 03/16/19 11:18 GGD [email or web address]) Physical Therapy Treatment Exercises Exercises Ankle Pumps Quad Sets Heel Slides Short Arc Quads Seated Knee Flexion/Extension M7 PT-IP Assessment and Plan Start: 03/15/19 16:11 Freq: NEEDED Status: Active Protocol: Document 03/16/19 11:13 GGD (Rec: 03/16/19 11:18 GGD [email or web address]) PT Summary Assessment and Plan Summary Assessment Summary Pt improving with mobility. She needed less assist and able to progress gait distance . Pt was safe and stable with stair mobility. Pt safe for home D/C when medically stable . Frequency of Treatment Frequency Of Treatment Twice a Day Recommendations To Nursing Amount of Assist Needed 1 Person Assist Discharge Recommendations PT Discharge Recommendations Home with Assistance Outpatient PT
--- NOTE | 2019-03-16 13:41 | PC.NURSE ---
Discharge: Feels ready for d/c home today. Spouse in room. Seen by PT/OT prior to d/c and given there instructions. Rx obtained for oxycodone and given to pt. She is having sl more pain today and the block is wearing off. Reviewed d/c instructions. Is following her total knee precautions. Questions answered. Pt d/c home via auto.
== END 2019-03-16 12:45 | disposition home or self-care (01) ==
LOC: AC 03-16 08:01 → OR 03-16 14:01
PROVIDERS: PCP Internal Medicine; Visit Provider Orthopaedic Surgery
PROC: 0SRC0JZ Replacement of Right Knee Joint with Synthetic Substitute, Open Approach (ICD-10-PCS; CPT 27447; principal; 2019-03-15 07:45)
DX: M17.11 Unilateral primary osteoarthritis, right knee (principal); M06.9 Rheumatoid arthritis, unspecified; M19.071 Primary osteoarthritis, right ankle and foot; I10 Essential (primary) hypertension; E78.5 Hyperlipidemia, unspecified
CPT/HCPCS: 27447; 36415; 73560; 85014; 85018; 97116; 97162; 97530; C1776; C9290; J0690; J1100; J2250; J2274; J2405; J2704; J3010